=== PATIENT | male | born 1985 | race Caucasian/White ===

== ENCOUNTER 2018-09-13 14:21 | Emergency (ER) | payer OTHER ==
[2018-09-13] MEDS: FLUORESCEIN STRIP RIGHT EYE (15:45)
[2018-09-13] MEDS: OPHTHALMIC IRRIG SOLUTION 120 ML RIGHT EYE (15:45)
[2018-09-13] MEDS: TETRACAINE 0.5% 4 ML OPH RIGHT EYE (15:46)
== END 2018-09-13 16:43 | disposition home or self-care (01) ==
LOC: FTE 14:21
DX: H57.89 Other specified disorders of eye and adnexa (principal)
CPT/HCPCS: 99283; Z7502

== ENCOUNTER 2019-01-25 18:11 | Emergency (ER) | payer OTHER ==
[2019-01-25] MEDS: HYDROmorphONE 2 MG/ML SYG IM (19:15)
== END 2019-01-25 21:38 | disposition home or self-care (01) ==
LOC: FTE 18:11
DX: M54.42 Lumbago with sciatica, left side (principal); M54.41 Lumbago with sciatica, right side
CPT/HCPCS: 72131; 96372; 99285-25

== ENCOUNTER 2019-03-07 14:35 | Emergency (ER) | payer OTHER ==
[2019-03-07] MEDS: morphine 4 MG/ML VIAL IV (15:36)
[2019-03-07] MEDS: ONDANSETRON 4 MG INJ IV (15:36)
[2019-03-07] MEDS: SOD CHLORIDE 0.9% 1,000 ML IV (15:36)
[2019-03-07 15:43] LABS: ADD MAN DIFF? NO
[2019-03-07 15:44] LABS: BASOPHIL # 0.1 10^3/ul (0.0-0.1); BASOPHILS % 0.9 % (0.0-2.0); EOSINOPHILS # 0.1 10^3/ul (0.0-0.5); EOSINOPHILS % 1.4 % (0.0-7.0); HEMATOCRIT 46.1 % (42.0-52.0); HEMOGLOBIN 16.9 g/dl (14.0-18.0); LYMPHOCYTES # 2.6 10^3/ul (0.8-2.9); LYMPHOCYTES % 36.7 % (15.0-51.0); MEAN CORPUSCULAR HEMOGLOBIN 31.8 pg (29.0-33.0); MEAN CORPUSCULAR HGB CONC 36.7 g/dl (32.0-37.0); MEAN CORPUSCULAR VOLUME 86.7 fl (82.0-101.0); MEAN PLATELET VOLUME 10.2 fl (7.4-10.4); MONOCYTE # 0.4 10^3/ul (0.3-0.9); MONOCYTES % 6.1 % (0.0-11.0); NEUTROPHIL # 3.8 10^3/ul (1.6-7.5); NEUTROPHILS % 54.5 % (39.0-77.0); PLATELET COUNT 231 10^3/UL (140-415); RED BLOOD COUNT 5.32 10^6/ul (4.70-6.10); RED CELL DISTRIBUTION WIDTH 12.3 % (11.5-14.5)
[2019-03-07 15:51] LABS: ADD UMIC NO; UR ASCORBIC ACID NEGATIVE (NEGATIVE); UR BILIRUBIN (Dip) NEGATIVE (NEGATIVE); UR BLOOD (Dip) NEGATIVE (NEGATIVE); UR CLARITY CLEAR (CLEAR); UR COLOR STRAW (YELLOW); UR GLUCOSE (Dip) NEGATIVE (NEGATIVE); UR KETONES (Dip) NEGATIVE (NEGATIVE); UR LEUKOCYTE ESTERASE (Dip) NEGATIVE Leu/ul (NEGATIVE); UR NITRITE (Dip) NEGATIVE (NEGATIVE); UR SPECIFIC GRAVITY (Dip) 1.005 (1.003-1.030); UR TOTAL PROTEIN (Dip) NEGATIVE (NEGATIVE); UR UROBILINOGEN (Dip) NEGATIVE (NEGATIVE)
[2019-03-07 16:37] LABS: ANION GAP 11 (5-13); BLOOD UREA NITROGEN 9 mg/dl (7-20); CALCIUM 9.8 mg/dl (8.4-10.2); CARBON DIOXIDE 28 mmol/L (21-31); CHLORIDE 100 mmol/L (97-110); Estimated GFR > 60 mL/min (>60); GLUCOSE 96 mg/dl (70-220); POTASSIUM 4.7 mmol/L (3.5-5.1); SODIUM 139 mmol/L (135-144)
== END 2019-03-07 19:24 | disposition home or self-care (01) ==
LOC: E/R 14:35
DX: M54.5 Low back pain (principal); R42 Dizziness and giddiness
CPT/HCPCS: 36415; 72158; 80048; 81003; 85025; 96374; 96375; 99285-25